=== PATIENT | male | born 1980 | race African-American/Black ===

== ENCOUNTER 2017-06-27 21:50 | Emergency (ER) | payer SELFPAY ==
[~2017-06-27] VITALS: Ht 172.7 cm; Wt 72.7 kg
[2017-06-27 21:50] VITALS: BP 136/84
[2017-06-28] MEDS ORDERED: NS 1,000 ML IV ONE (01:00)
[2017-06-28 01:25] LABS: BASO % 0.6 % (0.0-1.0); EOS % 0.6 % (0.0-3.0); IMMATURE GRANULOCYTE % 0.3 % (0-0); LYMPH # 1.8 10^3/uL (1.5-4.5); LYMPH % 26.2 % (24.0-44.0); MEAN CORPUSCULAR HEMOGLOBIN 30.2 pg (27.0-33.0); MEAN CORPUSCULAR HGB CONC 33.8 g/dl (32.0-36.5); MEAN CORPUSCULAR VOLUME 89.4 fl (80.0-96.0); MONO # 0.3 10^3/uL (0.0-0.8); MONO % 4.4 % (0.0-5.0); NEUTROPHILS # 4.6 10^3/uL (1.8-7.7); NEUTROPHILS % 67.9 % (36.0-66.0); PLATELET COUNT, AUTOMATED 303 10^3/uL (150-450); RED CELL DISTRIBUTION WIDTH 13.6 % (11.5-14.5); WHITE BLOOD COUNT 6.8 10^3/uL (4.0-10.0)
[2017-06-28 01:47] LABS: ALBUMIN 3.5 GM/DL (3.2-5.2); ALBUMIN/GLOBULIN RATIO 1.06 (1.00-1.93); ALKALINE PHOSPHATASE 72 U/L (45-117); ALT/SGPT 30 U/L (12-78); AMYLASE 70 U/L (25-115); ANION GAP 7 MEQ/L (8-16); AST/SGOT 33 U/L (15-37); BILIRUBIN,DIRECT 0.1 MG/DL (0.0-0.2); BILIRUBIN,TOTAL 0.4 MG/DL (0.2-1.0); BLOOD UREA NITROGEN 8 MG/DL (7-18); CALCIUM LEVEL 8.1 MG/DL (8.5-10.1); CARBON DIOXIDE LEVEL 30 MEQ/L (21-32); CHLORIDE LEVEL 107 MEQ/L (98-107); CREATININE FOR GFR 0.82 MG/DL (0.70-1.30); GLOMERULAR FILTRATION RATE > 60.0 (>60); GLUCOSE, FASTING 84 MG/DL (70-105); POTASSIUM SERUM 3.7 MEQ/L (3.5-5.1); SODIUM LEVEL 144 MEQ/L (136-145); TOTAL PROTEIN 6.8 GM/DL (6.4-8.2)
== END 2017-06-28 04:09 | disposition home or self-care (01) ==
LOC: M ED 21:50
DX: F10.129 Alcohol abuse with intoxication, unspecified (principal); R11.10 Vomiting, unspecified; F17.200 Nicotine dependence, unspecified, uncomplicated
CPT/HCPCS: 80048; 80076; 82150; 83690; 85025; 99283; G0480

== ENCOUNTER 2018-01-04 00:55 | Emergency (ER) | payer MEDICAID, SELFPAY ==
[2018-01-04] MEDS: TETANUS/DIPHTHERIA TOX ADSORB ADULT 0.5ML SYR/VIAL (90714) IM ×2 (02:12)
== END 2018-01-04 02:21 | disposition left against medical advice (07) ==
LOC: M ED 00:55
DX: T76.11XA Adult physical abuse, suspected, initial encounter (principal); Z53.21 Procedure and treatment not carried out due to patient leaving prior to being seen by health care provider
CPT/HCPCS: 90714

== ENCOUNTER → 2018-04-10 | Outpatient (CLI) | payer MEDICAID | LOC: M OUTALCOH 08:00 | DX: Z03.89 Encounter for observation for other suspected diseases and conditions ruled out (principal) ==

== ENCOUNTER 2018-08-03 08:54 | Outpatient (RCR) | payer OTHER | END 2018-08-07 | LOC: M PT 08:54 | DX: M47.896 Other spondylosis, lumbar region (principal); M51.36 Other intervertebral disc degeneration, lumbar region ==

== ENCOUNTER 2018-09-03 11:18 | Outpatient (RCR) | payer OTHER | END 2018-09-07 | LOC: M PT 11:18 | PROVIDERS: ATTEND Physician Assistant | DX: M47.896 Other spondylosis, lumbar region (principal) ==

== ENCOUNTER 2018-09-09 08:52 | Outpatient (RCR) | payer OTHER | END 2018-10-08 | LOC: M PT 08:52 | PROVIDERS: ATTEND Physician Assistant | DX: M47.896 Other spondylosis, lumbar region (principal) ==

== ENCOUNTER → 2019-11-15 | Outpatient (CLI) | payer OTHER ==
[~2019-11-15] MED LIST: ACET1TAB16; AMOX875T2; GABA800T4; PRED20TA
--- NOTE | 2019-11-15 19:23 | REP ---
Left rib series four views: There is no rib fracture or other rib abnormality. No pleural effusion or pleural thickening. Impression: Negative left ribs series. Electronically Signed by Alek Wynne MD 11/15/2019 07:15 P
--- NOTE | 2019-11-15 19:25 | REP ---
PA and lateral chest: The PA view is anteverted and placed in the left rib series file. There is no pneumothorax, hemothorax or pulmonary contusion. There is mild diffuse interstitial coarsening, unusual for patient age. This is nonspecific in the absence of prior studies and could be acute or chronic. Cardiac size is normal. The juan, mediastinum, skeletal structures are unremarkable. Impression: Diffuse interstitial coarsening, nonspecific, acute versus chronic. Electronically Signed by Alek Wynne MD 11/15/2019 07:16 P
== END ==
LOC: M LAB 12:58
PROVIDERS: ATTEND Physician Assistant Medical
DX: R07.81 Pleurodynia (principal)

== ENCOUNTER 2019-11-17 22:56 | Emergency (ER) | payer OTHER ==
[~2019-11-17] VITALS: Ht 170.2 cm; Wt 74.7 kg
[2019-11-17] MEDS ORDERED: ACET1TAB16 (23:10)
[2019-11-17] MEDS ORDERED: PRED20TA (23:10)
[2019-11-17] MEDS ORDERED: GABA800T4 (23:10)
[2019-11-17] MEDS ORDERED: AMOX875T2 (23:10)
[2019-11-17 23:35] LABS: BASO % 0.2 % (0.0-1.0); EOS % 0.4 % (0.0-3.0); HEMATOCRIT 40.4 % (42.0-52.0); HEMOGLOBIN 13.3 g/dl (13.5-17.5); LYMPH # 1.5 10^3/uL (1.5-5.0); LYMPH % 14.5 % (24.0-44.0); MEAN CORPUSCULAR HEMOGLOBIN 29.7 pg (27.0-33.0); MEAN CORPUSCULAR HGB CONC 32.9 g/dl (32.0-36.5); MEAN CORPUSCULAR VOLUME 90.2 fl (80.0-96.0); MONO # 0.4 10^3/uL (0.0-0.8); MONO % 3.7 % (0.0-5.0); NEUTROPHILS # 8.1 10^3/uL (1.5-8.5); NEUTROPHILS % 80.8 % (36.0-66.0); PLATELET COUNT, AUTOMATED 511 10^3/uL (150-450); RED BLOOD COUNT 4.48 10^6/uL (4.30-6.10)
[2019-11-17] MEDS ORDERED: ISOVUE-370 76% 100ML VIAL (Q9967) As Ordered ONE (23:44)
[2019-11-17] MEDS ORDERED: KETOROLAC 30 MG/ML VIAL (J1885) IV ONE (23:45)
[2019-11-17 23:51] LABS: INR 0.94; PROTHROMBIN TIME 12.3 SECONDS (11.8-14.0)
[2019-11-18 00:09] LABS: ALBUMIN 3.2 GM/DL (3.2-5.2); ALT/SGPT 41 U/L (12-78); BILIRUBIN,DIRECT < 0.1 MG/DL (0.0-0.2); BILIRUBIN,TOTAL 0.2 MG/DL (0.2-1.0); CK-MB VALUE MASS 1.7 NG/ML (<3.6); CPK CREATINE PHOSPHOKINASE 296 U/L (39-308); LIPASE 167 U/L (73-393); MB/CK RELATIVE INDEX 0.57 (< OR =4); TOTAL PROTEIN 6.7 GM/DL (6.4-8.2); TROPONIN I < 0.02 NG/ML (< 0.10)
--- NOTE | 2019-11-18 00:41 | REPVR ---
PROCEDURE INFORMATION: Exam: CT Angiography Chest With Contrast Exam date and time: 11/17/2019 11:40 PM Age: 39 years old Clinical indication: Chest pain; Type not specified; Additional info: Cp TECHNIQUE: Imaging protocol: Computed tomographic angiography of the chest with intravenous contrast. 3D rendering: MIP and/or 3D reconstructed images were created by the technologist. Radiation optimization: All CT scans at this facility use at least one of these dose optimization techniques: automated exposure control; mA and/or kV adjustment per patient size (includes targeted exams where dose is matched to clinical indication); or iterative reconstruction. Contrast material: ISO; Contrast volume: 75 ml; Contrast route: AC; COMPARISON: CR PORTABLE CHEST X-RAY 11/17/2019 11:09 PM FINDINGS: Pulmonary arteries: Normal. No pulmonary emboli. Aorta: Unremarkable. No aortic aneurysm. No aortic dissection. Trachea: Unremarkable. Lungs: Diffuse centrilobular nodules which are predominantly 3 mm and smaller. There are also mild ill-defined centrilobular nodular densities measuring up to 5 mm. Mild areas of ground-glass opacities in the right lung. Pleural space: Unremarkable. No pneumothorax. No pleural effusion. Heart: Unremarkable. No cardiomegaly. No pericardial effusion. Lymph nodes: Unremarkable. No enlarged lymph nodes. Bones/joints: Acute mildly displaced fracture of the left 3rd rib anteriorly. No acute spinal fracture. Soft tissues: Unremarkable. IMPRESSION: 1. Mild areas of ground-glass opacities in the right lung. Mild contusion versus aspiration. 2. Diffuse centrilobular nodules as described. Differential diagnosis includes aspiration versus infection versus respiratory bronchiolitis. 3. Acute mildly displaced fracture of the left 3rd rib anteriorly. COMMENTS: Note that centrilobular, tree-in-bud, and typical perifissural nodules are considered very low likelihood of cancer and follow up for cancer is not necessary for these nodules. (Lung-RADS, ACR, Version 1.1, 2019) Electronically signed by: Kate Lea On 11/18/2019 00:40:50 AM
[2019-11-18] MEDS ORDERED: traMADol 50 MG TAB (BULK 4 TAB ED) PO ONE (01:00)
[2019-11-18 01:27] VITALS: BP 144/76
--- NOTE | 2019-11-18 02:17 | REP ---
Clinical: Chest pain . Comparison: 11/15/2019 . Findings: The mediastinum and cardiac silhouette are stable and within normal limits for portable technique. The lung herrera are clear without acute consolidation, effusion, or pneumothorax. Skeletal structures are intact. Impression: No focal consolidation, effusion, or pneumothorax. Electronically Signed by Morris Sofia MD 11/18/2019 02:08 A
--- NOTE | 2019-11-18 18:56 | ECGEPIP ---
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
--- NOTE | 2019-11-21 11:20 | ED PDOC ---
Post-Departure Follow-Up gerri ruelas faxed formal report of cta for fu cristog Abena Perera MD Nov 21, 2019 11:20
== END 2019-11-18 01:28 | disposition home or self-care (01) ==
LOC: M ED 22:56
DX: S22.32XA Fracture of one rib, left side, initial encounter for closed fracture (principal); X58.XXXA Exposure to other specified factors, initial encounter; R91.8 Other nonspecific abnormal finding of lung field; R00.0 Tachycardia, unspecified; Z87.09 Personal history of other diseases of the respiratory system; Z87.891 Personal history of nicotine dependence; Z79.899 Other long term (current) drug therapy
CPT/HCPCS: 71045; 71275; 80047; 80076; 82550; 82553; 83690; 85025; 85610; 93005; 93041; 94760; 96372; 96374; 99285; J1885; Q9967